=== PATIENT | male | born 1965 | race Hispanic/Latino ===

== ENCOUNTER 2018-12-19 02:09 | Observation (INO) | payer OTHER ==
[2018-12-19] MEDS ORDERED: ASPIRIN 325 MG TAB PO ONE (02:50)
[2018-12-19 03:26] LABS: Basophils # (Auto) 0.1 K/mm3 (0.0-0.1); Basophils % (Auto) 0.7 % (0.0-1.8); Eosinophils # (Auto) 0.2 K/mm3 (0.0-0.4); Eosinophils % (Auto) 2.2 % (0.0-4.3); Hemoglobin 15.4 gm/dl (11.8-15.2); Lymphocytes # (Auto) 2.4 K/mm3 (1.2-5.4); Lymphocytes % (Auto) 24.1 % (13.4-35.0); Mean Corpuscular HGB Conc 34 % (32-34); Mean Corpuscular Volume 96 fl (84-94); Monocytes # (Auto) 0.8 K/mm3 (0.0-0.8); Monocytes % (Auto) 7.6 % (0.0-7.3); Platelet Count 248 K/mm3 (140-440); Red Blood Count 4.66 M/mm3 (3.65-5.03); Red Cell Distribution Width 13.4 % (13.2-15.2)
--- NOTE | 2018-12-19 03:27 | XRay Report ---
CHEST 1 VIEW 12/19/2018 3:03 AM INDICATION / CLINICAL INFORMATION: Chest Pain. COMPARISON: 07/21/14 FINDINGS: SUPPORT DEVICES: None. HEART / MEDIASTINUM: No significant abnormality. LUNGS / PLEURA: Interval moderate elevation of the left hemidiaphragm with left lung base atelectasis . No pneumothorax. ADDITIONAL FINDINGS: No significant additional findings. IMPRESSION: 1. Elevated left hemidiaphragm with left lung base atelectasis. Signer Name: Sherron Vallejo MD Signed: 12/19/2018 3:22 AM Workstation Name: [id number]
[2018-12-19 04:05] LABS: BUN/Creatinine Ratio 12; Blood Urea Nitrogen 11 mg/dL (9-20); Calcium 9.4 mg/dL (8.4-10.2); Hemolysis Index 10
--- NOTE | 2018-12-19 06:23 | Emergency Department Report ---
ED Chest Pain HPI - General Chief Complaint: Chest Pain Stated Complaint: CP/L ARM PAIN Time Seen by Provider: 12/19/18 06:20 Source: family Mode of arrival: Ambulatory Limitations: No Limitations - History of Present Illness Initial Comments: 33-year-old male describes a tightness in his left chest which radiates to his left arm. He's had this intermittently. He keeps trying to convince me that he just laid on his arm wrong. He also states he has a throbbing in the left side of his face. He does not describe headache or any neurological change. He does admit to me that he's had this problem several times in the past perhaps for weeks if not months. He has been apparently denying the importance of use type symptoms and has not sought medical care. He is denying any associated symptoms whatsoever with these episodes. At the time of my initial encounter the pain had resolved. However the nursing staff did tell me the pain was recurrent. EKG was repeated and it showed no acute change from prior. MD Complaint: chest pain -: Gradual, week(s), month(s) Onset: during rest Pain Location: substernal Pain Radiation: LUE Severity: mild, moderate Quality: tightness Consistency: intermittent, now resolved Improves With: nothing Worsens With: nothing re: denies: nausea, vomting, diaphoresis Other Symptoms: denies: cough, fever, syncope Treatments Prior to Arrival: none Aspirin use within the Past 7 Days: (0) No - Related Data Allergies Allergy/AdvReac Type Severity Reaction Status Date / Time No Known Allergies Allergy Unverified 12/19/18 02:50 Heart Score - HEART Score History: Highly suspicious EKG: Non-specific Age: 45-65 Risk factors: 1-2 risk factors Troponin: < normal limit HEART Score: 5 - Critical Actions Critical Actions: 4-6 pts:12-16.6% risk of adverse cardiac event. Should be admitted ED Review of Systems ROS: Stated complaint: CP/L ARM PAIN Other details as noted in HPI Constitutional: denies: chills, fever Eyes: denies: eye pain, eye discharge, vision change ENT: as per HPI. denies: ear pain, throat pain Respiratory: denies: cough, shortness of breath, wheezing Cardiovascular: chest pain. denies: palpitations Endocrine: no symptoms reported Gastrointestinal: denies: abdominal pain, nausea, diarrhea Genitourinary: denies: urgency, dysuria Musculoskeletal: denies: back pain, joint swelling, arthralgia Skin: denies: rash, lesions Neurological: denies: headache, weakness, paresthesias Psychiatric: denies: anxiety, depression Hematological/Lymphatic: denies: easy bleeding, easy bruising ED Past Medical Hx - Past Medical History Previous Medical History?: Yes Hx Hypertension: Yes Additional medical history: High Cholesterol - Surgical History Past Surgical History?: No - Social History Smoking Status: Current Every Day Smoker Substance Use Type: None ED Physical Exam - General Limitations: No Limitations General appearance: alert, in no apparent distress - Head Head exam: Present: atraumatic, normocephalic - Eye Eye exam: Present: normal appearance. Absent: scleral icterus - ENT ENT exam: Present: mucous membranes moist - Neck Neck exam: Present: normal inspection. Absent: tenderness, meningismus - Respiratory Respiratory exam: Present: normal lung sounds bilaterally. Absent: respiratory distress - Cardiovascular Cardiovascular Exam: Present: regular rate, normal rhythm. Absent: systolic murmur, diastolic murmur, rubs, gallop - GI/Abdominal GI/Abdominal exam: Present: soft, normal bowel sounds. Absent: distended, tenderness, guarding, rebound, rigid - Rectal Rectal exam: Present: deferred - Extremities Exam Extremities exam: Present: normal inspection - Back Exam Back exam: Present: normal inspection - Neurological Exam Neurological exam: Present: alert, oriented X3, CN II-XII intact. Absent: motor sensory deficit - Psychiatric Psychiatric exam: Present: normal affect, normal mood - Skin Skin exam: Present: warm, dry, intact, normal color. Absent: rash ED Course Vital Signs 12/19/18 12/19/18 12/19/18 02:24 07:30 08:41 Temperature 97.4 F L Pulse Rate 74 78 72 Respiratory 18 19 19 Rate Blood Pressure 141/91 Blood Pressure 148/78 144/84 [Left] O2 Sat by Pulse 98 97 97 Oximetry - Reevaluation(s) Reevaluation #1: Patient required significant convincing to allow admission to the hospital. Case was discussed with the hospitalist service and he was admitted. 12/19/18 09:39 Reevaluation #2: CT angiogram was ordered in consideration of the patient's abnormal chest x-ray. 12/19/18 09:41 PATRICE score - Patrice Score Age > 65: (0) No Aspirin use within the Past 7 Days: (0) No 3 or more CAD Risk Factors: (1) Yes 2 or more Angina events in past 24 hrs: (0) No Known CAD with more than 50% Stenosis: (0) No Elevated Cardiac Markers: (0) No ST Deviation Greater than 0.5mm: (1) Yes PATRICE Score: 2 ED Medical Decision Making - Lab Data Result diagrams: 12/19/18 03:05 12/19/18 03:05 Laboratory Results - last 24 hr 12/19/18 12/19/18 03:05 03:05 WBC 10.1 RBC 4.66 Hgb 15.4 H Hct 45.0 MCV 96 H MCH 33 H MCHC 34 RDW 13.4 Plt Count 248 Lymph % (Auto) 24.1 [place] % (Auto) 7.6 H Eos % (Auto) 2.2 Baso % (Auto) 0.7 Lymph # 2.4 Gilchrist # 0.8 Eos # 0.2 Baso # 0.1 Seg Neutrophils % 65.4 Seg Neutrophils # 6.6 Sodium 143 Potassium 4.0 Chloride 103.7 Carbon Dioxide 26 Anion Gap 17 BUN 11 Creatinine 0.9 Estimated GFR > 60 BUN/Creatinine Ratio 12 Glucose 107 H Calcium 9.4 Troponin T < 0.010 Laboratory Results - last 24 hr 12/19/18 12/19/18 12/19/18 03:05 03:05 06:04 WBC 10.1 RBC 4.66 Hgb 15.4 H Hct 45.0 MCV 96 H MCH 33 H MCHC 34 RDW 13.4 Plt Count 248 Lymph % (Auto) 24.1 Gilchrist % (Auto) 7.6 H Eos % (Auto) 2.2 Baso % (Auto) 0.7 Lymph # 2.4 Gilchrist # 0.8 Eos # 0.2 Baso # 0.1 Seg Neutrophils % 65.4 Seg Neutrophils # 6.6 Sodium 143 Potassium 4.0 Chloride 103.7 Carbon Dioxide 26 Anion Gap 17 BUN 11 Creatinine 0.9 Estimated GFR > 60 BUN/Creatinine Ratio 12 Glucose 107 H Calcium 9.4 Troponin T < 0.010 < 0.010 - EKG Data -: EKG Interpreted by Ri EKG shows normal: sinus rhythm Rate: normal - EKG Data Interpretation: other (mild ST depression in diffuse leads. Left atrial abnormality.) - Radiology Data Radiology results: image reviewed (atelectasis noted) Critical care attestation.: If time is entered above; I have spent that time in minutes in the direct care of this critically ill patient, excluding procedure time. ED Disposition Clinical Impression: Atelectasis, left Chest pain Qualifiers: Chest pain type: unspecified Qualified Code(s): R07.9 - Chest pain, unspecified Disposition: DC-09 OP ADMIT IP TO THIS HOSP Is pt being admited?: Yes Does the pt Need Aspirin: Yes Condition: Stable Time of Disposition: 09:43
[2018-12-19] MEDS ORDERED: MORPHINE 2 MG/1 ML INJ IV ONE (07:51)
[2018-12-19] MEDS ORDERED: ACETAMINOPHEN 325 MG TAB PO PRN (08:29)
[2018-12-19] MEDS ORDERED: ONDANSETRON 4 MG/2 ML INJ IV PRN (08:29)
[2018-12-19] MEDS ORDERED: MORPHINE 2 MG/1 ML INJ IV PRN (08:29)
[2018-12-19] MEDS ORDERED: NITROGLYCERIN 0.4 MG TAB SUBL SL PRN (08:29)
--- NOTE | 2018-12-19 08:33 | History and Physical Report ---
History of Present Illness Chief complaint: Chest pain History of present illness: 53-year-old man who presents to the hospital with left-sided chest pain radiating to his left arm. The pain is intermittent. He is also complaining of throbbing on the left side of his face. Denies any trauma. He has had this problem several times in the past few weeks, and appears to be happening more frequently. 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 Past medical history; hypertension, hyperlipidemia Past surgical history; denies major surgeries Social history; tobacco abuse, denies illicit drugs or alcohol abuse Family history heart problems and hypertension Medications and Allergies Allergies Allergy/AdvReac Type Severity Reaction Status Date / Time No Known Allergies Allergy Unverified 12/19/18 02:50 Home Medications Medication Instructions Recorded Confirmed Last Taken Type AtorvaSTATin [Lipitor] 12/19/18 12/18/18 History Metoprolol Xl [Metoprolol 12/19/18 1 Day Ago History SUCCINATE ER TAB] ~12/18/18 Valsartan/Hydrochlorothiazide 12/19/18 12/18/18 History [Valsartan-Hctz 160-12.5 mg Tab] Review of Systems All systems: negative Constitutional: no weight loss Ears, nose, mouth and throat: no ear pain Cardiovascular: chest pain Respiratory: no cough Gastrointestinal: no abdominal pain Genitourinary Male: no dysuria Rectal: no pain Musculoskeletal: no neck stiffness Integumentary: no rash Neurological: no head injury Psychiatric: no anxiety Endocrine: no cold intolerance Hematologic/Lymphatic: no easy bruising Allergic/Immunologic: no urticaria Exam - Constitutional Vitals: Temp Pulse Resp BP Pulse Ox 97.4 F L 74 18 141/91 98 12/19/18 02:24 12/19/18 02:24 12/19/18 02:24 12/19/18 02:24 12/19/18 02:24 General appearance: Present: no acute distress, well-nourished - EENT Eyes: Present: PERRL ENT: hearing intact, clear oral mucosa, poor dentition (Missing multiple teeth) - Neck Neck: Present: supple, normal ROM - Respiratory Respiratory effort: normal Respiratory: bilateral: CTA - Cardiovascular Heart Sounds: Present: S1 & S2. Absent: rub, click - Extremities Extremities: pulses symmetrical, No edema Peripheral Pulses: within normal limits - Abdominal General gastrointestinal: Present: soft, non-tender, non-distended, normal bowel sounds Male genitourinary: Present: normal - Integumentary Integumentary: Present: clear, warm, dry - Musculoskeletal Musculoskeletal: gait normal, strength equal bilaterally - Psychiatric Psychiatric: appropriate mood/affect, intact judgment & insight - Neurologic Neurologic: CNII-XII intact, moves all extremities Results - Labs CBC & Chem 7: 12/19/18 03:05 12/19/18 03:05 Labs: Laboratory Last Values WBC 10.1 K/mm3 (4.5-11.0) 12/19/18 03:05 RBC 4.66 M/mm3 (3.65-5.03) 12/19/18 03:05 Hgb 15.4 gm/dl (11.8-15.2) H 12/19/18 03:05 Hct 45.0 % (35.5-45.6) 12/19/18 03:05 MCV 96 fl (84-94) H 12/19/18 03:05 MCH 33 pg (28-32) H 12/19/18 03:05 MCHC 34 % (32-34) 12/19/18 03:05 RDW 13.4 % (13.2-15.2) 12/19/18 03:05 Plt Count 248 K/mm3 (140-440) 12/19/18 03:05 Lymph % (Auto) 24.1 % (13.4-35.0) 12/19/18 03:05 [place] % (Auto) 7.6 % (0.0-7.3) H 12/19/18 03:05 Eos % (Auto) 2.2 % (0.0-4.3) 12/19/18 03:05 Baso % (Auto) 0.7 % (0.0-1.8) 12/19/18 03:05 Lymph # 2.4 K/mm3 (1.2-5.4) 12/19/18 03:05 [place] # 0.8 K/mm3 (0.0-0.8) 12/19/18 03:05 Eos # 0.2 K/mm3 (0.0-0.4) 12/19/18 03:05 Baso # 0.1 K/mm3 (0.0-0.1) 12/19/18 03:05 Seg Neutrophils % 65.4 % (40.0-70.0) 12/19/18 03:05 Seg Neutrophils # 6.6 K/mm3 (1.8-7.7) 12/19/18 03:05 Sodium 143 mmol/L (137-145) 12/19/18 03:05 Potassium 4.0 mmol/L (3.6-5.0) 12/19/18 03:05 Chloride 103.7 mmol/L (98-107) 12/19/18 03:05 Carbon Dioxide 26 mmol/L (22-30) 12/19/18 03:05 Anion Gap 17 mmol/L 12/19/18 03:05 BUN 11 mg/dL (9-20) 12/19/18 03:05 Creatinine 0.9 mg/dL (0.8-1.5) 12/19/18 03:05 Estimated GFR > 60 ml/min 12/19/18 03:05 BUN/Creatinine Ratio 12 % 12/19/18 03:05 Glucose 107 mg/dL (75-100) H 12/19/18 03:05 Calcium 9.4 mg/dL (8.4-10.2) 12/19/18 03:05 Troponin T < 0.010 ng/mL (0.00-0.029) 12/19/18 06:04 - Imaging and Cardiology Chest x-ray: image reviewed (No acute findings) Assessment and Plan Assessment and plan: 53-year-old man who presented to hospital with typical chest pain Diagnosis Chest pain Hypertension Hyperlipidemia Tobacco abuse Plan Typical chest pain aspirin, EKG no acute findings, chest x-ray neg, troponins negative so far, serial CE, cardiology consult to determine modality for coronary risk stratification Optimize medications for chronic conditions, LDL 93 at goal Tobacco abuse/dependence Smoking cessation counseling performed for 10 minutes, nicotine patches when necessary Preventative health counseling performed for 17 minutes DVT prophylaxis Lovenox Advance Directives: Yes VTE prophylaxis?: Chemical
--- NOTE | 2018-12-19 09:49 | Cat Scan Report ---
CTA CHEST WITH IV CONTRAST, 12/19/2018 INDICATION: Chest pain. TECHNIQUE: Axial CT images were obtained through the chest after injection of IV contrast. Coronal oblique 2-D reconstruction images were produced. 3 plane MIP reconstruction images were produced at an [employer] workstation. All CTs at this facility utilize dose reduction techniques including automated expos ure control, iterative reconstruction and weight based dosing when appropriate to reduce patient radi ation dose to as low as reasonable achievable. COMPARISON: Chest radiograph, 12/19/2018 FINDINGS: Evaluation of the pulmonary arteries demonstrates no evidence of central or segmental filling defects to suggest pulmonary embolism. The heart is normal in size. Evaluation of the lung parenchyma demons trates a suspected background of emphysematous change and mild nonspecific interstitial thickening. T here is elevation/eventration of the left hemidiaphragm, as demonstrated on the recent previous study . No definite airspace disease or pleural effusion is visualized. Limited imaging of the upper abdomen shows no evidence of acute abnormality. Evaluation of bony structures demonstrates no evidence of acute bony abnormality. IMPRESSION: 1. No evidence of pulmonary embolism or acute parenchymal process. Signer Name: Rhiannon Kelly MD Signed: 12/19/2018 9:45 AM Workstation Name: [id number]
[2018-12-19 11:11] LABS: Creatine Kinase MB 3.1 ng/mL (0.0-4.0)
[2018-12-19 11:12] LABS: INR 0.99 (0.87-1.13)
[2018-12-19 11:13] LABS: Partial Thromboplastin Time 26.4 Sec. (24.2-36.6)
[2018-12-19 11:14] LABS: Alanine Aminotransferase 27 units/L (7-56); Albumin 4.2 g/dL (3.9-5); Chol/HDL Ratio 2.79 %; HDL Cholesterol 54 mg/dL (40-59); LDL Cholesterol,Direct 93 mg/dL (50-130)
[2018-12-19 11:15] LABS: Bilirubin,Direct < 0.2 mg/dL (0-0.2)
--- NOTE | 2018-12-19 11:52 | Consultation ---
History of Present Illness Consult date: 12/19/18 Consult reason: chest pain (No previous cardiac hx,woke with chest pain at 2:00 AM,lasted 15 minutes or radiated to left arm,came to ER,similar episode in ER.) Past History Past Medical History: hypertension (for last 5-6 years.On Metoprolol and? valsartan.), other (was trajsferrred to [place] from this hospital ?in 2013,?aneurysm,patient is not sure.). 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 denies: prescription drug abuse, IV drug use Medications and Allergies Allergies Allergy/AdvReac Type Severity Reaction Status Date / Time No Known Allergies Allergy Unverified 12/19/18 02:50 Active Meds: Active Medications Acetaminophen (Tylenol) 650 mg PO Q4H PRN PRN Reason: Pain MILD(1-3)/Fever >100.5/CARROLL Enoxaparin Sodium (Enoxaparin) 40 mg SUB-Q QDAY KAREEN Morphine Sulfate (Morphine) 2 mg IV Q4H PRN PRN Reason: Pain, Moderate (4-6) Nitroglycerin (Nitrostat) 0.4 mg SL Q5M PRN PRN Reason: Chest Pain Ondansetron HCl (Zofran) 4 mg IV Q8H PRN PRN Reason: Nausea And Vomiting Sodium Chloride (Sodium Chloride Flush Syringe 10 Ml) 10 ml IV BID KAREEN Sodium Chloride (Sodium Chloride Flush Syringe 10 Ml) 10 ml IV PRN PRN PRN Reason: LINE FLUSH Review of Systems Constitutional: no weight loss Ears, nose, mouth and throat: no ear discharge Cardiovascular: chest pain, no orthopnea, no syncope Respiratory: no cough Gastrointestinal: no abdominal pain Genitourinary Male: no dysuria Rectal: no bleeding Musculoskeletal: no neck stiffness Integumentary: no rash Neurological: no headaches Psychiatric: no anxiety Endocrine: no cold intolerance Allergic/Immunologic: no urticaria Physical Examination Vital Signs Temp Pulse Resp BP Pulse Ox 97.4 F L 74 18 141/91 98 12/19/18 02:24 12/19/18 02:24 12/19/18 02:24 12/19/18 02:24 12/19/18 02:24 General appearance: no acute distress, well-nourished Neck: Positive: trachea midline Cardiac: Positive: Reg Rate and Rhythm, S4. Negative: Audible Murmur Lungs: Positive: clear to auscultation Neuro: Positive: Grossly Intact Abdomen: Positive: Unremarkable Male genitourinary: Positive: deferred Skin: Negative: Rash Extremities: Absent: edema Results 12/19/18 03:05 12/19/18 03:05 Cardiac Enzymes 12/19/18 Range/Units 10:08 AST 22 (5-40) units/L CK-MB (CK-2) 3.1 (0.0-4.0) ng/mL Coagulation 12/19/18 Range/Units 10:08 PT 13.0 (12.2-14.9) Sec. INR 0.99 (0.87-1.13) APTT 26.4 (24.2-36.6) Sec. Lipids 12/19/18 Range/Units 10:08 Triglycerides 57 (2-149) mg/dL Cholesterol 151 (50-199) mg/dL HDL Cholesterol 54 (40-59) mg/dL Cholesterol/HDL Ratio 2.79 % CBC 12/19/18 Range/Units 03:05 WBC 10.1 (4.5-11.0) K/mm3 RBC 4.66 (3.65-5.03) M/mm3 Hgb 15.4 H (11.8-15.2) gm/dl Hct 45.0 (35.5-45.6) % Plt Count 248 (140-440) K/mm3 Lymph # 2.4 (1.2-5.4) K/mm3 Desha # 0.8 (0.0-0.8) K/mm3 Eos # 0.2 (0.0-0.4) K/mm3 Baso # 0.1 (0.0-0.1) K/mm3 Comprehensive Metabolic Panel 12/19/18 12/19/18 Range/Units 03:05 10:08 Sodium 143 (137-145) mmol/L Potassium 4.0 (3.6-5.0) mmol/L Chloride 103.7 (98-107) mmol/L Carbon Dioxide 26 (22-30) mmol/L BUN 11 (9-20) mg/dL Creatinine 0.9 (0.8-1.5) mg/dL Glucose 107 H (75-100) mg/dL Calcium 9.4 (8.4-10.2) mg/dL Direct Bilirubin < 0.2 (0-0.2) mg/dL AST 22 (5-40) units/L ALT 27 (7-56) units/L Alkaline Phosphatase 72 (35-129) units/L Total Protein 7.4 (6.3-8.2) g/dL Albumin 4.2 (3.9-5) g/dL EKG interpretations - Telemetry EKG Rhythm: Sinus Rhythm Repolarization changes or abnormalities: nonspecific abnormality, ST segment, and/or T wave Assessment and Plan Patient with 2 episodes of chest pressure,radiation to left arm,SOB,lasted 15 minutes each,1 st episode happened while sleeping at 2 AM,came to ER,had similar episode lasting 15 minutes,hence admitted for further evaluation.EKG showed S.R,non specific St-T changes.No previous episodes,smoking 1 ppd for 40 years,drinks beer, 2 years ago,3 children. Etiology of chest pain not clear,will get serial troponins along with stress MPI and echo.Discussed with patient ,he is agreeable with plan. - Patient Problems (1) Essential hypertension Current Visit: Yes Status: Acute (2) Chest pain Current Visit: Yes Status: Acute Qualifiers: Chest pain type: unspecified Qualified Code(s): R07.9 - Chest pain, unspecified (3) Hyperlipidemia Current Visit: Yes Status: Acute
[2018-12-19] MEDS ORDERED: VALSARTAN PO SCH (13:15)
[2018-12-19] MEDS ORDERED: [UNRECOGNIZED DRUG - OTHER] PO SCH (13:15)
[2018-12-19] MEDS ORDERED: HYDROCHLOROTHIAZIDE PO SCH (13:15)
[2018-12-19] MEDS ORDERED: METOPROLOL SUCCINATE XL 100 MG TAB PO SCH (14:00)
[2018-12-19] MEDS: ENOXAPARIN 40 MG/0.4 ML INJ SUB-Q SCH (14:13)
[2018-12-19] MEDS: VALSARTAN 160MG TAB PO SCH (14:14)
[2018-12-19] MEDS: LISINOPRIL 20 MG TAB PO SCH (14:15)
[2018-12-19] MEDS: NICOTINE 14 MG/24 HR PATCH TD SCH (14:29)
[2018-12-19] MEDS: METOPROLOL SUCCINATE XL 50 MG TAB PO SCH (17:41)
[2018-12-20] MEDS ORDERED: REGADENOSON 0.4 MG/5 ML INJ IV ONE (07:10)
--- NOTE | 2018-12-20 09:39 | Discharge Summary ---
Providers - Providers Date of Admission: 12/19/18 08:29 Attending physician: GENEVIEVE LÓPEZ MD 12/19/18 Consult to Cardiac Rehabilitation [CONS] Routine Reason For Exam: Phase I 12/19/18 08:26 Consult to Cardiology [CONS] Routine Consulting Provider: ERIK JACOB Reason For Exam: chest pain 12/19/18 11:38 Consult to Physician [CONS] Routine Comment: Consulting Provider: ERIK JACOB Physician Instructions: Reason For Exam: cp [facility] Hospitalization Condition: Stable Hospital course: 53-year-old man who presented to hospital with typical chest pain Diagnosis Chest pain Hypertension Hyperlipidemia Tobacco abuse Plan chest pain likely due to costochondritis aspirin, EKG no acute findings, chest x-ray neg, troponins negative so far, serial CE, patient had stress test which was negative. But he did experience chest pain on the treadmill. Discussed with cardiology they will follow with him as an outpatient. Optimize medications for chronic conditions, LDL 93 at goal Tobacco abuse/dependence Smoking cessation counseling performed for 10 minutes, nicotine patches when necessary Preventative health counseling performed for 17 minutes DVT prophylaxis Lovenox Advance Directives: Yes VTE prophylaxis?: Chemical Disposition: DC-01 TO HOME OR SELFCARE Time spent for discharge: 35 minutes Core Measure Documentation - Palliative Care Palliative Care/ Comfort Measures: Not Applicable - Core Measures Any of the following diagnoses?: none Exam - Constitutional Vitals: Temp Pulse Resp BP Pulse Ox 98.1 F 56 L 18 111/71 96 12/20/18 05:26 12/20/18 05:26 12/20/18 05:26 12/20/18 05:26 12/20/18 05:26 General appearance: Present: no acute distress, well-nourished - EENT Eyes: Present: PERRL ENT: hearing intact, clear oral mucosa - Neck Neck: Present: supple, normal ROM - Respiratory Respiratory effort: normal Respiratory: bilateral: CTA - Cardiovascular Heart Sounds: Present: S1 & S2. Absent: rub, click - Extremities Extremities: pulses symmetrical, No edema Peripheral Pulses: within normal limits - Abdominal General gastrointestinal: Present: soft, non-tender, non-distended, normal bowel sounds Male genitourinary: Present: normal - Integumentary Integumentary: Present: clear, warm, dry - Musculoskeletal Musculoskeletal: gait normal, strength equal bilaterally - Psychiatric Psychiatric: appropriate mood/affect, intact judgment & insight - Neurologic Neurologic: CNII-XII intact, moves all extremities Plan Follow up with: [facility] SHERMAN [Primary Care Provider] - 3-5 Days Prescriptions: Metoprolol Xl [Metoprolol SUCCINATE ER TAB] 50 mg PO QDAY #90 tablet
[2018-12-20] MEDS ORDERED: hydroCHLOROthiazide 12.5 MG CAP PO SCH (10:00)
--- NOTE | 2018-12-20 10:33 | Progress Note ---
Assessment and Plan Echo reviewed- EF 50-55%, septal wall hypertrophy. S/p treadmill MPI stress test this AM. Myocardial perfusion images negative for ischemia. However, pt c/o chest pain while walking on treadmill and his stress ECG is non diagnostic as he had baseline resting abnormalities. Additional cardiac evaluation (CCTA) offered and pt would prefer to be discharged and follow up as OP. Can consider additional ischemic evaluation as OP if chest pain reoccurs. Currently stable cardiac status. Pt may d/c home from cardiology standpoint. Recommend follow up in our office with Dr. Vargas within 1-2 weeks ([phone]). The patient has been seen in conjunction with Dr. Dean who agrees with the assessment and plan of care. - Patient Problems (1) Chest pain Current Visit: Yes Status: Acute Qualifiers: Chest pain type: unspecified Qualified Code(s): R07.9 - Chest pain, unspecified (2) HTN (hypertension) Current Visit: Yes Status: Chronic (3) Tobacco use Current Visit: Yes Status: Chronic (4) Alcohol use Current Visit: Yes Status: Chronic Subjective Date of service: 12/20/18 Principal diagnosis: cp Interval history: pt for stress test. in SR with SB overnight. Objective Last Vital Signs Temp 98.1 F 12/20/18 05:26 Pulse 56 L 12/20/18 05:26 Resp 18 12/20/18 05:26 BP 111/71 12/20/18 05:26 Pulse Ox 96 12/20/18 05:26 - Physical Examination General: No Apparent Distress HEENT: Positive: PERRL, Normocephaly, Mucus Membranes Moist Neck: Positive: trachea midline Cardiac: Positive: Reg Rate and Rhythm, S1/S2 Lungs: Positive: Decreased Breath Sounds Neuro: Positive: Grossly Intact Abdomen: Positive: Unremarkable Skin: Negative: Rash Extremities: Absent: edema - Labs and Meds Cardiac Enzymes 12/19/18 Range/Units 10:08 AST 22 (5-40) units/L CK-MB (CK-2) 3.1 (0.0-4.0) ng/mL Coagulation 12/19/18 Range/Units 10:08 PT 13.0 (12.2-14.9) Sec. INR 0.99 (0.87-1.13) APTT 26.4 (24.2-36.6) Sec. Lipids 12/19/18 Range/Units 10:08 Triglycerides 57 (2-149) mg/dL Cholesterol 151 (50-199) mg/dL HDL Cholesterol 54 (40-59) mg/dL Cholesterol/HDL Ratio 2.79 % Comprehensive Metabolic Panel 12/19/18 Range/Units 10:08 Direct Bilirubin < 0.2 (0-0.2) mg/dL AST 22 (5-40) units/L ALT 27 (7-56) units/L Alkaline Phosphatase 72 (35-129) units/L Total Protein 7.4 (6.3-8.2) g/dL Albumin 4.2 (3.9-5) g/dL - Telemetry EKG Rhythm: Sinus Rhythm Repolarization changes or abnormalities: nonspecific abnormality, ST segment, and/or T wave
[2018-12-20] MEDS: METOPROLOL SUCCINATE XL 50 MG TAB PO SCH (12:50)
[2018-12-20] MEDS: VALSARTAN 160MG TAB PO SCH (12:51)
[2018-12-20] MEDS: LISINOPRIL 20 MG TAB PO SCH (12:51)
[2018-12-20] MEDS: NICOTINE 14 MG/24 HR PATCH TD SCH (12:51)
[2018-12-20] MEDS: ENOXAPARIN 40 MG/0.4 ML INJ SUB-Q SCH (12:51)
[2018-12-20 12:56] VITALS: BP 125/71
--- NOTE | 2018-12-20 23:21 | Treadmill Report ---
NUCLEAR CARDIAC IMAGING REPORT INDICATION FOR PROCEDURE: Chest pain. Informed consent was obtained. Stress testing was performed via treadmill. The patient exercised according to the Sudheer protocol achieving greater than 85% of the maximum predicted heart rate response and attained a workload of 10.1 mets. The baseline electrocardiogram demonstrated sinus rhythm with minor nonspecific repolarization changes. The ST response to exercise demonstrated suspicious ST segment repolarization abnormalities, which however, do not appear to be diagnostic of ischemia. The patient achieved a workload of 10.1 mets. Heart rate and blood pressure response was normal. Exercise was limited by fatigue. The patient did experience chest pain at peak exercise but also stated that he hurt "all over". Rest and stress nuclear cardiac imaging were performed following the intravenous administration of technetium-99m Myoview per protocol. Gated SPECT imaging demonstrates a post-stress left ventricular ejection fraction of 60% with normal wall motion. Myocardial perfusion imaging demonstrates no significant cavity change between stress and rest. No significant stress induced perfusion defects were seen. Treadmill stress test is clinically and electrocardiographically suspicious but not diagnostic for myocardial ischemia. The st segment changes are inconclusive due to baseline changes. Nuclear cardiac imaging demonstrates grossly normal left ventricular systolic function with no significant evidence for myocardial ischemia or necrosis. JOB# [id number] ALEXANDRIA/SAMANTHA SANCHEZ
== END 2018-12-20 14:10 | disposition home or self-care (01) ==
LOC: ED 02:09 → 3A 08:29
PROVIDERS: ADMIT Internal Medicine; ATTEND Internal Medicine
DX: R07.89 Other chest pain (principal); J98.11 Atelectasis; I10 Essential (primary) hypertension; E78.5 Hyperlipidemia, unspecified; E78.00 Pure hypercholesterolemia, unspecified; F17.200 Nicotine dependence, unspecified, uncomplicated; Z71.6 Tobacco abuse counseling; Z79.82 Long term (current) use of aspirin; Z79.899 Other long term (current) drug therapy
CPT/HCPCS: 36415; 71045; 71275; 78452; 80048; 80061; 80076; 82550; 82553; 83735; 83880; 84484; 85025; 85610; 85730; 93005; 93010; 93017; 93306; 96372; 96374; 99284; 99406; A9270; A9502; G0378; J1650; J2270; J2785; Q9967